=== PATIENT | male | born 1955 | race African-American/Black ===

== ENCOUNTER 2022-11-01 08:52 | Emergency (ER) | payer MEDICARE, MEDICAID ==
[~2022-11-01] VITALS: Ht 182.9 cm; Wt 77.0 kg
[2022-11-01] MEDS ORDERED: ACETAMINOPHEN WITH CODEINE 300/30MG TABLET PO ONE (09:00)
[2022-11-01] MEDS ORDERED: CLONIDINE 0.1MG TABLET PO ONE (10:15)
[2022-11-01] MEDS ORDERED: AMLODIPINE 10MG TABLET PO ONE (12:00)
[2022-11-01] MEDS ORDERED: ACET-2708 MT (12:03)
[2022-11-01] MEDS ORDERED: AMLO10TA4 MT (12:03)
[2022-11-01] MEDS ORDERED: AMLODIPINE 5MG TABLET PO NR (12:15)
[2022-11-01 12:24] VITALS: BP 178/106
== END 2022-11-01 12:25 | disposition home or self-care (01) ==
LOC: ER 08:52
DX: M54.50 Low back pain, unspecified (principal); I10 Essential (primary) hypertension
CPT/HCPCS: 72100; 99284